=== PATIENT | male | born 1985 | race Caucasian/White ===

== ENCOUNTER 2016-12-31 12:55 | Day surgery (SDC) | payer BC ==
[~2016-12-31] VITALS: Ht 182.9 cm; Wt 77.2 kg
[~2016-12-31 12:55] MED LIST: ZYRTEC 10MG10 MG PO
[2016-12-31 13:17] VITALS: BP 129/91; PULSE 89; TEMP 98.3
[2016-12-31] MEDS ORDERED: PROTEIN1 PDR PO (13:25)
[2016-12-31] MEDS ORDERED: CREATINE PO (13:26)
[2016-12-31] MEDS ORDERED: [UNRECOGNIZED DRUG - OTHER] PO (13:27)
[2016-12-31] MEDS ORDERED: [UNRECOGNIZED DRUG - OTHER] PO (13:29)
[2016-12-31] MEDS ORDERED: TUMS500 MG PO (13:30)
[2016-12-31 15:15] VITALS: BP 109/84; PULSE 92; TEMP 98.3
[2016-12-31 15:30] VITALS: BP 117/78; PULSE 84
[2016-12-31 15:45] VITALS: BP 114/83; PULSE 85
[2016-12-31 17:10] VITALS: BP 119/62; PULSE 82
== END 2016-12-31 15:45 | disposition home or self-care (01) ==
LOC: SDCO 12:55
DX: K20.9 Esophagitis, unspecified (principal); K22.2 Esophageal obstruction; K29.30 Chronic superficial gastritis without bleeding; J45.909 Unspecified asthma, uncomplicated
CPT/HCPCS: OP; C1726; J2250; J3010; J7030